=== PATIENT | female | born 1970 | race Caucasian/White ===

== ENCOUNTER → 2017-05-10 | Outpatient (CLI) | payer OTHER | END | disposition home or self-care (01) | LOC: CFH 10:12 | PROVIDERS: ATTEND Internal Medicine | DX: Z12.31 Encounter for screening mammogram for malignant neoplasm of breast (principal) | CPT/HCPCS: G0202 ==

== ENCOUNTER → 2018-04-15 | Outpatient (CLI) | payer OTHER | END | disposition home or self-care (01) | LOC: WOUND 08:32 | PROVIDERS: ATTEND Family Medicine | DX: E11.621 Type 2 diabetes mellitus with foot ulcer (principal); L97.512 Non-pressure chronic ulcer of other part of right foot with fat layer exposed | CPT/HCPCS: 99215 ==

== ENCOUNTER → 2018-04-22 | Outpatient (CLI) | payer OTHER | END | disposition home or self-care (01) | LOC: WOUND 08:44 | PROVIDERS: ATTEND Family Medicine | DX: E11.621 Type 2 diabetes mellitus with foot ulcer (principal); L97.512 Non-pressure chronic ulcer of other part of right foot with fat layer exposed | CPT/HCPCS: 97597 ==

== ENCOUNTER 2018-08-11 13:30 | Inpatient (IN) | payer OTHER ==
[~2018-08-11] VITALS: Ht 149.9 cm; Wt 53.7 kg
[~2018-08-11 13:30] MED LIST: DEXAMETHASONE 4 MG/ML, 1ML ONE; ONDANSETRON 2MG/ML, 2ML ONE
[2018-08-11] MEDS ORDERED: SODIUM CHLORIDE FLUSH 10ML SYR IVF ONE (14:00)
[2018-08-11] MEDS ORDERED: MORPHINE SULFATE 4 MG/ML, 1ML IVPush PRN ×3 (14:00→18:00)
[2018-08-11] MEDS ORDERED: ONDANSETRON ODT 8 MG PO ONE (14:00)
[2018-08-11] MEDS ORDERED: FAMOTIDINE 20 MG/2 ML IVP ONE (14:00)
[2018-08-11] MEDS ORDERED: SODIUM CHLORIDE 0.9% 1,000ML IVBOLUS ONE ×2 (14:00→16:00)
[2018-08-11] MEDS ORDERED: MORPHINE SULFATE 4 MG/ML, 1ML ONE (14:18)
[2018-08-11] MEDS ORDERED: FAMOTIDINE 20 MG/2 ML ONE (14:19)
[2018-08-11 14:26] LABS: MEAN CORPUSCULAR HGB CONC 33.5 g/dL (32.4-35.8); MEAN CORPUSCULAR VOLUME 98.7 fL (80-100); MEAN PLATELET VOLUME 8.4 fL (7.4-10.4); PLATELET COUNT 273 x10^3/uL (130-400); RED BLOOD COUNT 4.79 x10^6/uL (3.82-5.3); RED CELL DISTRIBUTION WIDTH 12.4 % (9.6-15.2)
[2018-08-11] MEDS ORDERED: ONDANSETRON ODT 4 MG ONE ×2 (14:26→14:36)
[2018-08-11 14:31] LABS: ANION GAP 14 mmol/L (5-15); CALCIUM 9.1 mg/dL (8.5-10.1); CHLORIDE 99 mmol/L (98-107); CREATININE 1.49 mg/dL (0.55-1.02)
[2018-08-11 14:32] LABS: ALANINE AMINOTRANSFERASE 20 U/L (12-78); ALBUMIN 3.6 g/dL (3.4-5.0)
[2018-08-11 14:33] LABS: ALKALINE PHOSPHATASE 80 U/L (45-117); BILIRUBIN,TOTAL 1.1 mg/dL (0.2-1.0); TOTAL PROTEIN 8.4 g/dL (6.4-8.2)
[2018-08-11 15:16] LABS: MD YES
[2018-08-11 15:29] LABS: BANDS%(MANUAL) 2 % (0-7); LYMPH#(MANUAL) 2.39 x10^3/uL (1-3.4); LYMPHS% (MANUAL) 12 % (22-44); MONOS#(MANUAL) 1.99 x10^3/uL (0.3-2.7); MONOS% (MANUAL) 10 % (2-9); SEGS% (MANUAL) 76 % (42-75)
[2018-08-11 15:30] LABS: <RBC MORPHOLOGY> NORMAL
[2018-08-11 15:31] LABS: <PLATELET ESTIMATE> ADEQUATE; <PLT MORPHOLOGY> NORMAL PLT MORPH; PMNS WITH VACUOLES 1+; TOXIC GRAN 2+
[2018-08-11] MEDS ORDERED: METRONIDAZOLE PMX 500MG/100ML 100 ML IV ONE (16:00)
[2018-08-11] MEDS ORDERED: CEFEPIME 2 GM in DEXTROSE 5% 100 ML IV ONE (16:00)
[2018-08-11] MEDS ORDERED: MIDAZOLAM 1 MG/ML, 2ML ONE (16:11)
[2018-08-11] MEDS ORDERED: FENTANYL PF 250 MCG/5ML ONE (16:11)
[2018-08-11] MEDS ORDERED: ROCURONIUM 10MG/ML,5ML ONE (16:13)
[2018-08-11] MEDS ORDERED: PROPOFOL 10 MG/ML, 20ML ONE (16:13)
[2018-08-11] MEDS ORDERED: SUCCINYLCHOLINE 20 MG/ML, 10ML ONE (16:13)
[2018-08-11] MEDS ORDERED: LIDOCAINE JELLY 2%, 30GM ONE (16:17)
[2018-08-11] MEDS ORDERED: BUPIVACAINE/PF-EPI 0.5% 1:200K ONE (16:26)
[2018-08-11] MEDS ORDERED: METRONIDAZOLE PMX 500MG/100ML 100 ML ONE (16:31)
[2018-08-11] MEDS: SODIUM CHLORIDE 0.9% 1,000 ML IV SCH (16:42)
[2018-08-11] MEDS ORDERED: ENALAPRILAT 1.25 MG/ML, 2ML IVPush PRN (17:00)
[2018-08-11] MEDS ORDERED: ONDANSETRON ODT 4 MG PO PRN (17:00)
[2018-08-11] MEDS ORDERED: BISACODYL 10 MG SUPP PR PRN (17:00)
[2018-08-11] MEDS ORDERED: ONDANSETRON 2MG/ML, 2ML IVPush PRN (17:00)
[2018-08-11] MEDS ORDERED: DOCUSATE 100 MG CAPSULE PO PRN (17:00)
[2018-08-11] MEDS ORDERED: LABETALOL 5MG/ML, 20ML IVPush PRN (17:00)
[2018-08-11 17:34] LABS: HEMOGLOBIN A1C 5.6 % (4.2-6.3)
[2018-08-11] MEDS ORDERED: PROMETHAZINE 12.5 MG SUPP PR PRN (18:00)
[2018-08-11] MEDS ORDERED: ALBUTEROL SULFATE 2.5 MG/3 ML NPPB PRN (18:00)
[2018-08-11] MEDS ORDERED: HALOPERIDOL 5 MG/ML IV PRN (18:00)
[2018-08-11] MEDS ORDERED: EPHEDRINE 50 MG/ML, 1ML IVPush PRN (18:00)
[2018-08-11] MEDS ORDERED: PROMETHAZINE 25 MG/ML, 1ML IV PRN (18:00)
[2018-08-11] MEDS ORDERED: hydrALAzine 20 MG/ML, 1ML IV PRN (18:00)
[2018-08-11] MEDS ORDERED: HYDROmorphone 1 MG/ML, 1ML IV PRN (18:00)
[2018-08-11] MEDS ORDERED: ACETAMINOPHEN 325 MG TABLET PO PRN (18:00)
[2018-08-11] MEDS ORDERED: ONDANSETRON ODT 8 MG PO PRN (18:00)
[2018-08-11] MEDS ORDERED: ONDANSETRON 2MG/ML, 2ML IV PRN (18:00)
[2018-08-11] MEDS ORDERED: OXYcodone 5 MG/5 ML ORAL.SOL UDC PO PRN (18:00)
[2018-08-11] MEDS ORDERED: MIDAZOLAM 1 MG/ML, 2ML IV PRN (18:00)
[2018-08-11] MEDS ORDERED: LABETALOL 5MG/ML, 20ML IV PRN (18:00)
[2018-08-11] MEDS ORDERED: FENTANYL PF 100 MCG/2ML IV PRN (18:00)
[2018-08-11] MEDS ORDERED: MEPERIDINE/PF 25MG/0.5ML IVPush PRN (18:00)
[2018-08-11] MEDS ORDERED: LORazepam 2 MG/ML, 1ML IVPush PRN (18:00)
[2018-08-11] MEDS ORDERED: ACETAMINOPHEN 650 MG/20.3 ML UDC ONE (18:10)
[2018-08-11] MEDS ORDERED: OXYcodone 5 MG/5 ML ORAL.SOL UDC ONE (18:11)
[2018-08-11] MEDS ORDERED: FENTANYL PF 100 MCG/2ML ONE (18:17)
[2018-08-12 00:09] VITALS: BP 119/79
[2018-08-12] MEDS: METRONIDAZOLE PMX 500MG/100ML 100 ML IV SCH ×3 (01:24→17:54)
[2018-08-12 03:40] VITALS: BP 133/89
[2018-08-12] MEDS: SODIUM CHLORIDE 0.9% 1,000 ML IV SCH ×2 (04:44→16:23)
[2018-08-12 05:19] LABS: MEAN CORPUSCULAR HGB CONC 33.9 g/dL (32.4-35.8); MEAN CORPUSCULAR VOLUME 100.4 fL (80-100); MEAN PLATELET VOLUME 8.7 fL (7.4-10.4); PLATELET COUNT 245 x10^3/uL (130-400); RED BLOOD COUNT 4.17 x10^6/uL (3.82-5.3); RED CELL DISTRIBUTION WIDTH 12.2 % (9.6-15.2)
[2018-08-12] MEDS: HYDROcodone/APAP 5/325 TABLET PO PRN ×2 (05:22→11:33)
[2018-08-12 05:29] LABS: ALANINE AMINOTRANSFERASE 54 U/L (12-78); ANION GAP 11 mmol/L (5-15); CALCIUM 8.1 mg/dL (8.5-10.1); CHLORIDE 103 mmol/L (98-107); CREATININE 1.18 mg/dL (0.55-1.02)
[2018-08-12 05:33] LABS: ALKALINE PHOSPHATASE 72 U/L (45-117); BILIRUBIN,TOTAL 0.8 mg/dL (0.2-1.0); CHOL/HDL RATIO 3.8; CHOLESTEROL, TOTAL 165 mg/dL (140-239); HDL CHOL % 26 % (28-40); HDL CHOLESTEROL (DIRECT) 43 mg/dL (40-60); LDL CHOLESTEROL,CALCULATED 83 mg/dL (54-169); LDL/HDL RATIO 1.9 (0.5-3.0); TOTAL PROTEIN 7.5 g/dL (6.4-8.2); TRIGLYCERIDES 197 mg/dL (50-200); VLDL CHOLESTEROL 39 mg/dL (0-25)
[2018-08-12 05:49] LABS: MD YES
[2018-08-12 05:51] LABS: BAND#(MANUAL) 0.84 x10^3/uL; BANDS%(MANUAL) 4 % (0-7); LYMPH#(MANUAL) 2.51 x10^3/uL (1-3.4); LYMPHS% (MANUAL) 12 % (22-44); MONOS#(MANUAL) 1.67 x10^3/uL (0.3-2.7); MONOS% (MANUAL) 8 % (2-9); SEG#(MANUAL) 15.88 x10^3/uL (1.8-6.8); SEGS% (MANUAL) 76 % (42-75)
[2018-08-12 05:52] LABS: <RBC MORPHOLOGY> NORMAL
[2018-08-12 05:53] LABS: <PLATELET ESTIMATE> ADEQUATE; <PLT MORPHOLOGY> NORMAL PLT MORPH; TOXIC GRAN 2+
[2018-08-12 07:00] VITALS: BP 121/83
[2018-08-12] MEDS: SENNA/DOCUSATE TABLET PO SCH (09:00)
[2018-08-12 12:45] VITALS: BP 153/97
[2018-08-12] MEDS ORDERED: CEFTRIAXONE 1,000 MG in DEXTROSE 5% 50 ML IV SCH (15:00)
[2018-08-12] MEDS ORDERED: MAGNESIUM SULFATE 1 GM in SODIUM CHLORIDE 0.9% 50 ML IV ONE (15:30)
[2018-08-12 19:42] VITALS: BP 147/96
[2018-08-12] MEDS: CEFTRIAXONE PMX 1GM/50ML 50 ML IV SCH (22:23)
[2018-08-13] MEDS: METRONIDAZOLE PMX 500MG/100ML 100 ML IV SCH ×3 (01:33→17:56)
[2018-08-13 01:41] VITALS: BP 162/102
[2018-08-13] MEDS: ACETAMINOPHEN 325 MG TABLET PO PRN ×4 (01:50→22:42)
[2018-08-13] MEDS: SODIUM CHLORIDE 0.9% 1,000 ML IV SCH ×2 (05:09→14:00)
[2018-08-13 05:21] LABS: MEAN CORPUSCULAR HEMOGLOBIN 33.7 pg (27.0-34.8); MEAN CORPUSCULAR HGB CONC 33.9 g/dL (32.4-35.8); MEAN CORPUSCULAR VOLUME 99.5 fL (80-100); MEAN PLATELET VOLUME 8.4 fL (7.4-10.4); PLATELET COUNT 194 x10^3/uL (130-400); RED CELL DISTRIBUTION WIDTH 12.2 % (9.6-15.2)
[2018-08-13 05:29] LABS: ALBUMIN 2.3 g/dL (3.4-5.0); ANION GAP 8 mmol/L (5-15); CALCIUM 7.6 mg/dL (8.5-10.1); CHLORIDE 109 mmol/L (98-107)
[2018-08-13 05:34] LABS: ALANINE AMINOTRANSFERASE 31 U/L (12-78); ALKALINE PHOSPHATASE 69 U/L (45-117); BILIRUBIN,TOTAL 0.4 mg/dL (0.2-1.0); CREATININE 0.89 mg/dL (0.55-1.02); TOTAL PROTEIN 6.2 g/dL (6.4-8.2)
[2018-08-13 06:14] LABS: BASOPHILS # (AUTO) 0.04 x10^3/uL (0-0.1); BASOPHILS % (AUTO) 0 % (0-1); EOSINOPHILS # (AUTO) 0.05 x10^3/uL (0-0.4); EOSINOPHILS % (AUTO) 0 % (1-7); LYMPHOCYTES # (AUTO) 1.46 x10^3/uL (1-3.4); LYMPHOCYTES % (AUTO) 12 % (22-44); MD SCAN; MONOCYTES # (AUTO) 0.58 x10^3/uL (0.2-0.8); MONOCYTES % (AUTO) 5 % (2-9); NEUTROPHILS # (AUTO) 10.32 x10^3/uL (1.8-6.8); NEUTROPHILS % (AUTO) 83 % (42-75)
[2018-08-13 07:50] VITALS: BP 153/105
[2018-08-13] MEDS: SENNA/DOCUSATE TABLET PO SCH (10:06)
[2018-08-13] MEDS ORDERED: METR500T8 PO (12:55)
[2018-08-13] MEDS ORDERED: SENN1TAB8 PO (12:55)
[2018-08-13] MEDS ORDERED: CEFP200T PO (12:55)
[2018-08-13] MEDS ORDERED: ACET325T14 PO (12:55)
[2018-08-13 14:00] VITALS: BP 160/111
[2018-08-13 15:13] LABS: ALANINE AMINOTRANSFERASE 31 U/L (12-78); ALBUMIN 2.5 g/dL (3.4-5.0); ANION GAP 8 mmol/L (5-15); CALCIUM 7.8 mg/dL (8.5-10.1); CHLORIDE 107 mmol/L (98-107); CREATININE 0.86 mg/dL (0.55-1.02)
[2018-08-13 15:15] LABS: ALKALINE PHOSPHATASE 74 U/L (45-117); BILIRUBIN,TOTAL 0.5 mg/dL (0.2-1.0); TOTAL PROTEIN 6.5 g/dL (6.4-8.2)
[2018-08-13 18:25] VITALS: BP 166/111
[2018-08-13] MEDS: CEFTRIAXONE PMX 1GM/50ML 50 ML IV SCH (22:42)
[2018-08-14] MEDS: SODIUM CHLORIDE 0.9% 1,000 ML IV SCH
[2018-08-14 02:06] VITALS: BP 160/107
[2018-08-14] MEDS: METRONIDAZOLE PMX 500MG/100ML 100 ML IV SCH (03:00)
[2018-08-14 05:20] LABS: BASOPHILS # (AUTO) 0.04 x10^3/uL (0-0.1); BASOPHILS % (AUTO) 0 % (0-1); EOSINOPHILS # (AUTO) 0.13 x10^3/uL (0-0.4); EOSINOPHILS % (AUTO) 1 % (1-7); LYMPHOCYTES # (AUTO) 1.66 x10^3/uL (1-3.4); LYMPHOCYTES % (AUTO) 14 % (22-44); MD NO; MEAN CORPUSCULAR HEMOGLOBIN 33.3 pg (27.0-34.8); MEAN CORPUSCULAR HGB CONC 33.7 g/dL (32.4-35.8); MEAN CORPUSCULAR VOLUME 98.8 fL (80-100); MEAN PLATELET VOLUME 8.5 fL (7.4-10.4); MONOCYTES # (AUTO) 0.84 x10^3/uL (0.2-0.8); MONOCYTES % (AUTO) 7 % (2-9); NEUTROPHILS # (AUTO) 9.34 x10^3/uL (1.8-6.8); NEUTROPHILS % (AUTO) 78 % (42-75); PLATELET COUNT 219 x10^3/uL (130-400); RED BLOOD COUNT 3.54 x10^6/uL (3.82-5.3); RED CELL DISTRIBUTION WIDTH 12.5 % (9.6-15.2)
[2018-08-14 05:33] LABS: ALBUMIN 2.5 g/dL (3.4-5.0); ANION GAP 8 mmol/L (5-15); CALCIUM 7.7 mg/dL (8.5-10.1); CHLORIDE 105 mmol/L (98-107)
[2018-08-14 05:37] LABS: ALANINE AMINOTRANSFERASE 25 U/L (12-78); ALKALINE PHOSPHATASE 80 U/L (45-117); BILIRUBIN,TOTAL 0.4 mg/dL (0.2-1.0); CREATININE 0.75 mg/dL (0.55-1.02); TOTAL PROTEIN 6.6 g/dL (6.4-8.2)
[2018-08-14 06:43] VITALS: BP 164/111
[2018-08-14] MEDS ORDERED: ATENOLOL 25 MG TABLET PO SCH (07:30)
[2018-08-14] MEDS: SENNA/DOCUSATE TABLET PO SCH (08:11)
[2018-08-14] MEDS ORDERED: ATEN25TA PO (09:17)
[2018-08-14] MEDS ORDERED: HYDR-3237 PO (09:56)
== END 2018-08-14 11:30 | disposition home or self-care (01) | DRG 853 ==
LOC: ED 14:10 → EDIP 16:10 → 4NOR 18:54
PROVIDERS: ADMIT Internal Medicine; ATTEND Internal Medicine
PROC: 0F904ZZ Drainage of Liver, Percutaneous Endoscopic Approach (ICD-10-PCS; 2018-08-11)
PROC: 0FT44ZZ Resection of Gallbladder, Percutaneous Endoscopic Approach (ICD-10-PCS; principal; 2018-08-11 16:30)
DX: A41.9 Sepsis, unspecified organism (principal); K75.0 Abscess of liver; N17.9 Acute kidney failure, unspecified; K80.12 Calculus of gallbladder with acute and chronic cholecystitis without obstruction; K82.1 Hydrops of gallbladder; E11.9 Type 2 diabetes mellitus without complications; E83.42 Hypomagnesemia; E86.0 Dehydration; K76.0 Fatty (change of) liver, not elsewhere classified; Z79.84 Long term (current) use of oral hypoglycemic drugs
CPT/HCPCS: 36415; 84145; 99291; S0028; 76700; 80053; 80061; 83036; 83605; 83690; 83735; 84100; 84443; 85025; 87040; 88304; 93005; 96374; 96375; G0378; J0696; J1100; J2250; J2405; J2704; J3010; J3475; Q0162; J0330; J7030

== ENCOUNTER → 2018-08-30 | Outpatient (CLI) | payer OTHER ==
[~2018-08-30] MED LIST changes: +ACET325T14 PO; +ATEN25TA PO; +CEFP200T PO; -DEXAMETHASONE 4 MG/ML, 1ML ONE; +HYDR-3237 PO; +METR500T8 PO; -ONDANSETRON 2MG/ML, 2ML ONE; +SENN1TAB8 PO
== END | disposition home or self-care (01) ==
LOC: CFH 07:43
PROVIDERS: ATTEND Internal Medicine Cardiovascular Disease
DX: I10 Essential (primary) hypertension (principal); I47.1 Supraventricular tachycardia
CPT/HCPCS: 93306

== ENCOUNTER → 2018-09-01 | Outpatient (CLI) | payer OTHER ==
[2018-09-01 12:38] LABS: ALBUMIN 3.4 g/dL (3.4-5.0); ANION GAP 8 mmol/L (5-15); CALCIUM 8.9 mg/dL (8.5-10.1); CHLORIDE 102 mmol/L (98-107)
[2018-09-01 12:41] LABS: ALANINE AMINOTRANSFERASE 23 U/L (12-78); ALKALINE PHOSPHATASE 70 U/L (45-117); BILIRUBIN,TOTAL 0.4 mg/dL (0.2-1.0); CHOL/HDL RATIO 5.7; CHOLESTEROL, TOTAL 149 mg/dL (140-239); CREATININE 0.97 mg/dL (0.55-1.02); HDL CHOL % 17 % (28-40); HDL CHOLESTEROL (DIRECT) 26 mg/dL (40-60); LDL CHOLESTEROL,CALCULATED 50 mg/dL (54-169); LDL/HDL RATIO 1.9 (0.5-3.0); TOTAL PROTEIN 7.9 g/dL (6.4-8.2); TRIGLYCERIDES 363 mg/dL (50-200); VLDL CHOLESTEROL 73 mg/dL (0-25)
[2018-09-01 12:44] LABS: HEMOGLOBIN A1C 6.2 % (4.2-6.3)
== END | disposition home or self-care (01) ==
LOC: CFH 07:36
PROVIDERS: ATTEND Internal Medicine Cardiovascular Disease
DX: E11.628 Type 2 diabetes mellitus with other skin complications (principal); I10 Essential (primary) hypertension; I47.1 Supraventricular tachycardia; R03.0 Elevated blood-pressure reading, without diagnosis of hypertension
CPT/HCPCS: 36415; 80053; 80061; 83036

== ENCOUNTER → 2019-01-02 | Outpatient (CLI) | payer OTHER ==
[~2019-01-02] MED LIST changes: +METR-90 PO; -METR500T8 PO
[2019-01-02 12:46] LABS: CHLORIDE 103 mmol/L (98-107)
[2019-01-02 12:51] LABS: ALANINE AMINOTRANSFERASE 21 U/L (12-78); ALKALINE PHOSPHATASE 62 U/L (45-117); ANION GAP 7 mmol/L (5-15); BILIRUBIN,TOTAL 0.5 mg/dL (0.2-1.0); CALCIUM 9.4 mg/dL (8.5-10.1); CHOL/HDL RATIO 5.4; CHOLESTEROL, TOTAL 228 mg/dL (140-239); CREATININE 1.24 mg/dL (0.55-1.02); HDL CHOL % 18 % (28-40); HDL CHOLESTEROL (DIRECT) 42 mg/dL (40-60); LDL CHOLESTEROL,CALCULATED 127 mg/dL (54-169); TOTAL PROTEIN 8.2 g/dL (6.4-8.2); TRIGLYCERIDES 296 mg/dL (50-200); VLDL CHOLESTEROL 59 mg/dL (0-25)
[2019-01-02 13:28] LABS: HEMOGLOBIN A1C 6.3 % (4.2-6.3)
== END | disposition home or self-care (01) ==
LOC: CFH 07:13
PROVIDERS: ATTEND Internal Medicine Cardiovascular Disease
DX: E11.9 Type 2 diabetes mellitus without complications (principal); E78.1 Pure hyperglyceridemia; I10 Essential (primary) hypertension; I47.1 Supraventricular tachycardia; R03.0 Elevated blood-pressure reading, without diagnosis of hypertension
CPT/HCPCS: 36415; 80053; 80061; 82043; 83036

== ENCOUNTER → 2020-11-21 | Outpatient (CLI) | payer OTHER ==
[~2020-11-21] MED LIST changes: +SENN-177 PO; -SENN1TAB8 PO
[2020-11-21 07:16] LABS: BASOPHILS % (AUTO) 2 % (0-1); EOSINOPHILS % (AUTO) 4 % (1-7); LYMPHOCYTES % (AUTO) 50 % (22-44); MEAN CORPUSCULAR HEMOGLOBIN 33.4 pg (27.0-34.8); MEAN CORPUSCULAR HGB CONC 34.6 g/dL (32.4-35.8); MEAN PLATELET VOLUME 8.7 fL (7.4-10.4); MONOCYTES % (AUTO) 9 % (2-9); NEUTROPHILS % (AUTO) 34 % (42-75); PLATELET COUNT 273 x10^3/uL (130-400); RED BLOOD COUNT 4.02 x10^6/uL (3.82-5.3); RED CELL DISTRIBUTION WIDTH 11.9 % (9.6-15.2)
[2020-11-21 07:27] LABS: ALANINE AMINOTRANSFERASE 41 U/L (12-78); ALBUMIN 3.7 g/dL (3.4-5.0); ANION GAP 8 mmol/L (5-15); CHLORIDE 100 mmol/L (98-107); CHOLESTEROL, TOTAL 218 mg/dL (140-239); CREATININE 1.04 mg/dL (0.55-1.02)
[2020-11-21 07:30] LABS: MD SCAN
[2020-11-21 07:37] LABS: ALKALINE PHOSPHATASE 61 U/L (45-117); BILIRUBIN,TOTAL 0.3 mg/dL (0.2-1.0); CHOL/HDL RATIO 8.7; HDL CHOL % 11 % (28-40); HDL CHOLESTEROL (DIRECT) 25 mg/dL (40-60); TOTAL PROTEIN 7.3 g/dL (6.4-8.2); TRIGLYCERIDES 1468 mg/dL (50-200)
== END | disposition home or self-care (01) ==
LOC: LAB 07:03
PROVIDERS: ATTEND Internal Medicine
DX: E11.9 Type 2 diabetes mellitus without complications (principal); E78.2 Mixed hyperlipidemia; I10 Essential (primary) hypertension
CPT/HCPCS: 36415; 80053; 80061; 82043; 82306; 82570; 83036; 84443; 85025

== ENCOUNTER → 2021-03-14 | Outpatient (CLI) | payer OTHER | END | disposition home or self-care (01) | LOC: CFH 07:21 | PROVIDERS: ATTEND Internal Medicine | DX: Z12.31 Encounter for screening mammogram for malignant neoplasm of breast (principal) | CPT/HCPCS: 77063; 77067 ==

== ENCOUNTER 2021-07-30 07:19 | Outpatient (CLI) | payer OTHER ==
[2021-07-30 07:55] LABS: BASOPHILS % (AUTO) 0 % (0-1); EOSINOPHILS % (AUTO) 4 % (1-7); LYMPHOCYTES % (AUTO) 48 % (22-44); MEAN CORPUSCULAR HEMOGLOBIN 30.7 pg (27.0-34.8); MEAN CORPUSCULAR HGB CONC 33.1 g/dL (32.4-35.8); MEAN PLATELET VOLUME 7.4 fL (7.4-10.4); MONOCYTES % (AUTO) 11 % (2-9); NEUTROPHILS % (AUTO) 37 % (42-75); PLATELET COUNT 356 x10^3/uL (130-400); RED BLOOD COUNT 4.44 x10^6/uL (3.82-5.3); RED CELL DISTRIBUTION WIDTH 13.5 % (9.6-15.2)
[2021-07-30 08:13] LABS: CHLORIDE 99 mmol/L (98-107)
[2021-07-30 08:31] LABS: ALANINE AMINOTRANSFERASE 21 U/L (12-78); ALBUMIN 3.8 g/dL (3.4-5.0); ALKALINE PHOSPHATASE 39 U/L (45-117); ANION GAP 10 mmol/L (5-15); BILIRUBIN,TOTAL 0.5 mg/dL (0.2-1.0); CHOL/HDL RATIO 2.5; CHOLESTEROL, TOTAL 145 mg/dL (140-239); CREATININE 1.04 mg/dL (0.55-1.02); HDL CHOL % 39 % (28-40); HDL CHOLESTEROL (DIRECT) 57 mg/dL (40-60); LDL CHOLESTEROL,CALCULATED 71 mg/dL (54-169); LDL/HDL RATIO 1.2 (0.5-3.0); TOTAL PROTEIN 7.7 g/dL (6.4-8.2); TRIGLYCERIDES 85 mg/dL (50-200); VLDL CHOLESTEROL 17 mg/dL (0-25)
== END 2021-07-30 23:59 | disposition home or self-care (01) ==
LOC: LAB 07:19
PROVIDERS: ATTEND Internal Medicine
DX: E11.39 Type 2 diabetes mellitus with other diabetic ophthalmic complication (principal); E55.9 Vitamin D deficiency, unspecified; E78.2 Mixed hyperlipidemia; R00.0 Tachycardia, unspecified
CPT/HCPCS: 36415; 80053; 80061; 83036; 84443; 85025